=== PATIENT | male | born 1980 | race Caucasian/White ===

== ENCOUNTER 2017-05-18 00:20 | Emergency (ER) | payer SELFPAY ==
[~2017-05-18] VITALS: Ht 188 cm; Wt 86.2 kg
[2017-05-18 00:24] VITALS: BP 129/81
[2017-05-18] MEDS ORDERED: CEPHALEXIN MONOHYDRATE 500 MG CAPSULE PO ONE ×2 (00:30→00:44)
[2017-05-18] MEDS ORDERED: SILVER NITRATE APPLICATOR 1 EA BOX TP ONE (00:30)
[2017-05-18] MEDS ORDERED: LIDOCAINE 2% 20 ML MDV TP ONE (00:30)
[2017-05-18] MEDS ORDERED: SILVER NITRATE APPLICATOR 1 EA BOX ONE (00:35)
[2017-05-18] MEDS ORDERED: LIDOCAINE 2% 20 ML MDV ONE (00:35)
[2017-05-18] MEDS ORDERED: TDAP [DIPH/PERTUSSIS/TET] 0.5 ML VIAL IM ONE ×2 (00:44→01:00)
[2017-05-18] MEDS ORDERED: GELATIN SPONGE,ABSORBABLE 1 SPONGE SPONGE TP ONE (00:45)
--- NOTE | 2017-05-18 00:52 | NUR ---
EMT AT BEDSIDE TO APPLY DRESSING PER MD ORDERS.
== END 2017-05-18 01:04 | disposition home or self-care (01) ==
LOC: ER 00:24
DX: S61.307A Unspecified open wound of left little finger with damage to nail, initial encounter (principal); W45.8XXA Other foreign body or object entering through skin, initial encounter; Y93.89 Activity, other specified; Y92.89 Other specified places as the place of occurrence of the external cause; Y99.8 Other external cause status
CPT/HCPCS: 12001; 90471; 90715; 99284; A4606; J3490; Z7610